=== PATIENT | female | born 1955 | race Hispanic/Latino ===

== ENCOUNTER 2018-08-25 15:10 | Inpatient (IN) | payer BC ==
[2018-08-25 15:33] VITALS: BMI 26.5
--- NOTE | 2018-08-25 15:46 | ED PDOC ---
Arrival/HPI - General Chief Complaint: Dizziness/Lightheaded Time Seen by Provider: 08/25/18 15:17 Historian: Patient, Spouse () - History of Present Illness Narrative History of Present Illness (Text): A 62 year old female, whose past medical history includes seasonal allergies, left knee arthroscopy and bilateral cataract extraction, who is accompanied by her , presents to the emergency department complaining of lightheadedness for the past 2 days. Patient reports 2 days ago, she woke up to use the bathroom late at night, and felt sudden lightheadedness, described as "feeling wobbly." States she had to hold onto wall to ambulate steadily. States upon waking up the following morning, she awoke in cold sweats, and the rest of the day she felt normal. Similar events occurred yesterday night, 24+ hours prior and this morning. Patient called her PMD to schedule an appointment, however was instead instructed by PMD to go to the ER immediately for evaluation of symptoms. Patient mentions also experiencing some nausea, and tingling sensation to the fingertips of all digits to her left hand only at 0800. Patient denies any chest pain, shortness of breath, abdominal pain, vomiting, dysuria, syncope or near- syncope, falls/traumas, or any other complaints at this time. Denies taking any medications at home. During examination, notes left hand is normally shaky. PMD: Dr. López Bookkeeping Machine Mechanic: Dr. Ortez Past Medical History - Provider Review Nursing Documentation Reviewed: Yes - Psychiatric Hx Depression: No Hx Emotional Abuse: No Hx Physical Abuse: No Hx Substance Use: No - Surgical History Hx Arthroscopy: Yes (L knee) Hx Cataract Extraction: Yes (B/L) - Anesthesia Hx Anesthesia: Yes Hx Anesthesia Reactions: No Hx Malignant Hyperthermia: No - Suicidal Assessment Feels Threatened In Home Enviroment: No Family/Social History - Physician Review Nursing Documentation Reviewed: Yes Family/Social History: No Known Family HX Smoking Status: Never Smoked Hx Alcohol Use: Yes (rarely) Hx Substance Use: No Hx Substance Use Treatment: No Allergies/Home Meds Allergies/Adverse Reactions: Allergies No Known Allergies Allergy (Verified 08/10/16 16:03) Home Medications: Home Meds Medication Instructions Recorded Confirmed No Known Home Med 05/09/17 05/09/17 Review of Systems - Physician Review All systems were reviewed & negative as marked: Yes - Review of Systems Constitutional: Night Sweats. absent: Other (no falls/traumas) Eyes: absent: Vision Changes, Photophobia ENT: absent: Hearing Changes Respiratory: absent: SOB Cardiovascular: absent: Chest Pain, Palpitations, Edema, Syncope Gastrointestinal: Nausea. absent: Abdominal Pain, Vomiting Genitourinary Female: absent: Dysuria Musculoskeletal: absent: Back Pain Skin: absent: Rash Neurological: Other (lightheadedness) Endocrine: absent: Diaphoresis, Polyuria Hemo/Lymphatic: absent: Adenopathy, Easy Bleeding Physical Exam Vital Signs Reviewed: Yes Vital Signs Temp Pulse Resp BP Pulse Ox 08/25/18 15:11 98.3 F 93 H 18 132/77 98 Temperature: Afebrile Blood Pressure: Normal Pulse: Regular Respiratory Rate: Normal Appearance: Positive for: Well-Appearing, Non-Toxic, Comfortable Pain Distress: None Mental Status: Positive for: Alert and Oriented X 3 - Systems Exam Head: Present: Atraumatic, Normocephalic Pupils: Present: PERRL Extroacular Muscles: Present: EOMI Conjunctiva: Present: Normal Ears: Present: Normal, NORMAL TM Mouth: Present: Moist Mucous Membranes Pharnyx: Present: Normal. No: ERYTHEMA, EXUDATE Nose (Internal): Present: Normal Inspection Neck: Present: Normal Range of Motion. No: Meningeal Signs, MIDLINE TENDERNESS, Paraspinal Tenderness, JVD Respiratory/Chest: Present: Clear to Auscultation, Good Air Exchange. No: Respiratory Distress, Accessory Muscle Use Cardiovascular: Present: Regular Rate and Rhythm, Normal S1, S2. No: Murmurs Abdomen: No: Tenderness, Distention, Peritoneal Signs Back: Present: Normal Inspection. No: CVA Tenderness, Midline Tenderness Upper Extremity: Present: Normal Inspection, NORMAL PULSES, Neurovascularly Intact. No: Cyanosis, Edema Lower Extremity: Present: Normal Inspection, NORMAL PULSES, Neurovascularly Intact. No: Edema Neurological: Present: GCS=15, CN II-XII Intact, Speech Normal, Motor Func Grossly Intact, Other (abnl L finger to nose. slight tremor note : pt notes worsened from previous. ) Skin: Present: Warm, Dry, Normal Color. No: Rashes Lymphatic: No: Cervical Adenopathy Psychiatric: Present: Alert, Oriented x 3, Normal Insight, Normal Concentration Medical Decision Making ED Course and Treatment: 08/25/18 15:55 Impression: 62 year old female with lightheadedness and tingling to fingertips of all digits to left hand only. L fingertip began at 0800 this am tingling likely periphreal. No trauma note Fully N/V intact. No snuffbox tenderness or signs of trauma. Negative carpal tunnel exam. Slight tremor to L hand noted, w/ abnormal finger to nose. Pt notes this has been going on for greater than 24+ hours. Neuro exam otherwise unremarkable. No indication for code stroke given time frame of slight tremor to L hadn 24+ hours prior as well as vertigo / lightheadedness. L hand fingertip tingling has been since 0800 but more likely peripheral in etiology. Orthostatics unremarkable Plan: -- EKG -- Head CT -- Chest X-Ray -- IV Fluids -- Labs -- Urinalysis -- Reassess and disposition Progress Notes: EKG: Ordered, reviewed, and independently interpreted the EKG. Rate : 96 BPM Rhythm : NSR Interpretation : No STEMI. Comparison : No previous EKG for comparison. 08/25/18 17:51 Imaging, labs largely unremarkable. Appreciate consultation w/ Dr. Melendez: to admit to his service under obs. consult order placed per Dr. Melendez to Dr. Feliz Pt in [facility]. - Scribe Statement The provider has reviewed the documentation as recorded by the Scribe Sakshi Silva Provider Scribe Attestation: All medical record entries made by the Scribe were at my direction and personally dictated by me. I have reviewed the chart and agree that the record accurately reflects my personal performance of the history, physical exam, medical decision making, and the department course for this patient. I have also personally directed, reviewed, and agree with the discharge instructions and disposition. Disposition/Present on Arrival - Present on Arrival Any Indicators Present on Arrival: No History of DVT/PE: No History of Uncontrolled Diabetes: No Urinary Catheter: No History of Decub. Ulcer: No History Surgical Site Infection Following: None - Disposition Have Diagnosis and Disposition been Completed?: Yes Diagnosis: Dizzy, Finger numbness Disposition Time: 17:51 Condition: GOOD Referrals: Js López MD [Primary Care Provider] - Follow up with primary Forms: [employer] (Iraqi)
[2018-08-25] MEDS: Sodium Chloride 0.9% 1,000 ML IV SCH (16:12)
[2018-08-25 16:19] LABS: BASO # 0.02 K/mm3 (0.0-2.0); BASO % 0.2 % (0.0-3.0); EOS # 0.1 (0.0-0.7); EOS % 0.7 % (1.5-5.0); HEMOGLOBIN 12.9 g/dL (12.0-16.0); LYMPH # 2.4 (1.2-3.4); LYMPH % 24.4 % (22.0-35.0); MEAN CELL VOLUME 90.8 fl (80.0-105.0); MEAN CORPUSCULAR HEMOGLOBIN 29.7 pg (25.0-35.0); MEAN CORPUSCULAR HGB CONC 32.7 g/dl (31.0-37.0); MONO # 0.8 (0.1-0.6); MONO % 8.2 % (1.0-6.0); RBC 4.35 10^6/uL (3.5-6.1); RED CELL DISTRIBUTION WIDTH 13.6 % (11.5-14.5); WHITE BLOOD COUNT 9.8 10^3/uL (4.5-11.0)
[2018-08-25 16:30] LABS: ALB/GLOB RATIO 1.2 (1.1-1.8); ALBUMIN 4.3 g/dL (3.0-4.8); ALT/SGPT 10 U/L (7-56); AST/SGOT 24 U/L (14-36); BLOOD UREA NITROGEN 13 mg/dL (7-21); CALCIUM 9.5 mg/dL (8.4-10.5); GFR NON-AFRICAN AMERICAN > 60
[2018-08-25 16:47] LABS: TROPONIN I < 0.01 ng/mL
--- NOTE | 2018-08-25 17:27 | CT ---
Date of service: 08/25/2018 PROCEDURE: CT HEAD WITHOUT CONTRAST. HISTORY: lightheaded / dizzy COMPARISON: None available. TECHNIQUE: Axial computed tomography images were obtained through the head/brain without intravenous contrast. Radiation dose: Total exam DLP = 826.96 mGy-cm. This CT exam was performed using one or more of the following dose reduction techniques: Automated exposure control, adjustment of the mA and/or kV according to patient size, and/or use of iterative reconstruction technique. FINDINGS: HEMORRHAGE: No intracranial hemorrhage. BRAIN: No mass effect or edema. No atrophy or chronic microvascular ischemic changes. VENTRICLES: Unremarkable. No hydrocephalus. CALVARIUM: Unremarkable. PARANASAL SINUSES: Unremarkable as visualized. No significant inflammatory changes. MASTOID AIR CELLS: Unremarkable as visualized. No inflammatory changes. OTHER FINDINGS: None. IMPRESSION: No acute findings
--- NOTE | 2018-08-25 17:27 | RAD ---
Date of service: 08/25/2018 HISTORY: lightheaded COMPARISON: No prior. TECHNIQUE: Chest PA and lateral FINDINGS: LUNGS: No active pulmonary disease. PLEURA: No significant pleural effusion identified. No pneumothorax apparent. CARDIOVASCULAR: No aortic atherosclerotic calcification present. Normal cardiac size. No pulmonary vascular congestion. OSSEOUS STRUCTURES: No significant abnormalities. VISUALIZED UPPER ABDOMEN: Normal. OTHER FINDINGS: None. IMPRESSION: No active disease.
--- NOTE | 2018-08-25 23:16 | HP ---
DATE OF EXAM: 08/25/2018 HISTORY OF PRESENT ILLNESS: The patient is seen in the emergency room. She is a 62-year-old female. She presented with symptoms today of tingling in the left hand. The patient also has past history of dizziness and ataxia-like symptoms for the last two days of short duration. The patient has not had dizziness in the past according to history. The patient has not seen me in the office for more than a year. She does not have any chronic accepting that she has had treatment for osteoarthritis and left knee pain. The patient had arthroscopy by orthopedic surgeon. The patient has had no past history of any cardio, neuro symptoms such as syncope or chest pain evaluation for cardiac disease. ALLERGIES: THE PATIENT IS NOT ALLERGIC TO ANY MEDICATIONS OR SUBSTANCE. SOCIAL HISTORY: The patient is . Her is with her at the time that she was seen in the emergency room today. PHYSICAL EXAMINATION: GENERAL: The patient is lying in the stretcher in the emergency room. She is fairly comfortable. HEENT: Head is normocephalic. NECK: Thyroid is not enlarged. Carotid pulses are present. JVP is flat. LUNGS: Trachea is central. Breath sounds are vesicular. No adventitious sounds are heard. HEART: Normal sinus rhythm. S1 and S2 present. ABDOMEN: Soft. Liver and spleen not palpable. No tenderness. No mass is seen. CENTRAL NERVOUS SYSTEM: The patient is conscious, rational, and oriented. The patient's eye examination; there is no sign of nystagmus noted. The patient's gait, she does not have any Romberg sign. Cranial nerves are intact I to VIII. The patient's motor and sensory functions are within normal limits. Reflexes are within normal limits. LABORATORY DATA: The patient's blood work done in the emergency room; CBC is within normal range. The patient's chemistry is within normal range. within normal range. The patient's chest x-ray is clear. CT scan of the head does not reveal any pathology at this time. IMPRESSION AND PLAN: In view of the patient's symptoms, the patient has been requested to have a neurological evaluation and she might need an MRI of the brain. We will do carotid Doppler to check the carotid arteries. The patient is on prophylactic dose of aspirin 81 mg daily, put on heart healthy diet, and we will follow up. Clinical status now is not clear, but the patient is going to be in the hospital for evaluation. Law López MD
[2018-08-26] MEDS: Sodium Chloride 0.9% 1,000 ML IV SCH ×3 (02:39→21:49)
--- NOTE | 2018-08-26 08:26 | CP.PCM.PN ---
Subjective - Date & Time of Evaluation Date of Evaluation: 08/26/18 Time of Evaluation: 08:00 - Subjective Subjective: Patient is seen this morning. She complains of tingling of the fingers of the left hand. She denies dizziness this morning. Objective - Vital Signs/Intake and Output Vital Signs (last 24 hours): Temp Pulse Resp BP Pulse Ox 98.2 F 82 18 144/70 96 08/26/18 08:06 08/26/18 08:06 08/26/18 08:06 08/26/18 08:06 08/26/18 08:06 Intake and Output: 08/26/18 08/26/18 06:59 18:59 Intake Total 660 Balance 660 - Medications Medications: Current Medications Aspirin (Ecotrin) 81 mg PO DAILY [facility] Sodium Chloride (Sodium Chloride 0.9%) 1,000 mls @ 100 mls/hr IV .Q10H [facility] Last Admin: 08/26/18 02:39 Dose: 100 mls/hr - Labs Labs: 08/25/18 14:08 08/25/18 14:08 - Constitutional Appears: No Acute Distress - Head Exam Head Exam: ATRAUMATIC, NORMOCEPHALIC - Respiratory Exam Respiratory Exam: Clear to Ausculation Bilateral, NORMAL BREATHING PATTERN - Cardiovascular Exam Cardiovascular Exam: REGULAR RHYTHM, +S1, +S2 - GI/Abdominal Exam GI & Abdominal Exam: Soft, Tenderness, Normal Bowel Sounds - Extremities Exam Extremities Exam: Normal Inspection - Neurological Exam Neurological Exam: Alert, Awake, Oriented x3 Assessment and Plan - Assessment and Plan (Free Text) Assessment: Tingling left hand/dizziness - Patient is awaiting neurological evaluation - continue ASA 81 mg daily - CT Head shows no acute abnormalities - will order Carotid Doppler and X-ray Cervical spine
--- NOTE | 2018-08-26 12:44 | RAD ---
Date of service: 08/26/2018 PROCEDURE: Cervical Spine Radiographs. HISTORY: Pain. COMPARISON: None available. FINDINGS: BONES: Alignment maintained. No fracture. Dens Intact. DISC SPACES: Normal. SOFT TISSUES: Normal. No prevertebral soft tissue swelling. OTHER FINDINGS: None. IMPRESSION: Normal cervical spine radiographs
--- NOTE | 2018-08-26 18:39 | US ---
PROCEDURE: Bilateral carotid artery duplex ultrasound HISTORY: Carotid stenosis TIA PHYSICIAN(S): Vinicio Licona MD. TECHNIQUE: Duplex sonography and color-flow Doppler were used to evaluate the carotid bifurcations and limited segments of the vertebral arteries bilaterally. FINDINGS: There is mild to moderate smooth heterogeneous plaque noted at the carotid bifurcations bilaterally. The peak systolic velocity in the proximal right internal carotid artery is 93 cm/sec. This corresponds to a 20 to 39% proximal right ICA stenosis. Normal systolic velocities are noted in the proximal right external carotid artery. There is antegrade flow in the right vertebral artery. The peak systolic velocity in the proximal left internal carotid artery is 123 cm/sec. This corresponds to a 40-59 percent proximal left ICA stenosis. Normal systolic velocities are noted in the proximal left external carotid artery. The left vertebral artery is large and appears to be occluded. IMPRESSION: 1. 40-59 percent proximal left ICA stenosis. 2. 20-39 percent proximal right ICA stenosis. 3. 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 The right vertebral artery is patent. This can be confirmed with MRA with gadolinium evaluation of the aortic arch and cervical vessels. A conventional arteriogram can also be considered
--- NOTE | 2018-08-26 19:46 | CARD ---
APPROVED REPORT Date of service: 08/25/2018 EKG Measurement Heart [id number] <Conclusion> Normal sinus rhythm Cannot rule out Inferior infarct, age undetermined Abnormal ECG
--- NOTE | 2018-08-26 20:22 | CON ---
DATE: 08/26/2018 HISTORY OF PRESENT ILLNESS: This is a 62-year-old female with past medical history of cataract, who came to the emergency room with a complaint of lightheadedness for the past 2 days. She woke up to use the bathroom late in the night and felt sudden lightheadedness and feeling wobbly and hold on to the perez and in the morning again she woke up in cold sweat, came to the hospital for evaluation. PAST MEDICAL HISTORY: As above. ALLERGIES: NO KNOWN DRUG ALLERGIES. PHYSICAL EXAMINATION: HEENT: Normocephalic and atraumatic. NECK: Supple. NEUROLOGIC: Alert, awake, and oriented x3. No aphasia. Cranial nerves II through XII are tested. Pupils reactive. EOM intact. Visual field full. No facial asymmetry. Tongue midline. Motor examination; moves all the extremities equally. Tone normal. Deep tendon reflexes 1+. Both plantars are downgoing. Sensory appears intact. Cerebellar gait deferred. IMPRESSION: Syncope, less likely with lightheadedness. CAT scan of the head was done which was reported negative. Symptoms have improved. PLAN: Continue present management. We will follow up. Maciel Feliz MD
--- NOTE | 2018-08-27 08:35 | CP.PCM.PN ---
Subjective - Date & Time of Evaluation Date of Evaluation: 08/27/18 Time of Evaluation: 07:45 - Subjective Subjective: Patient is seen this morning in room 365 bed 2. She continues to complain of tingling in the fingers of the left hand. Objective - Vital Signs/Intake and Output Vital Signs (last 24 hours): Temp Pulse Resp BP Pulse Ox 98.3 F 84 20 134/82 97 08/27/18 08:19 08/27/18 08:19 08/27/18 08:19 08/27/18 08:19 08/27/18 08:19 Intake and Output: 08/27/18 08/27/18 06:59 18:59 Intake Total 2240 Balance 2240 - Medications Medications: Current Medications Aspirin (Ecotrin) 81 mg PO DAILY [facility] Last Admin: 08/26/18 10:32 Dose: 81 mg Sodium Chloride (Sodium Chloride 0.9%) 1,000 mls @ 100 mls/hr IV .Q10H [facility] Last Admin: 08/26/18 21:49 Dose: Not Given - Labs Labs: 08/25/18 14:08 08/25/18 14:08 - Constitutional Appears: No Acute Distress - Head Exam Head Exam: ATRAUMATIC, NORMOCEPHALIC - Respiratory Exam Respiratory Exam: Clear to Ausculation Bilateral, NORMAL BREATHING PATTERN - Cardiovascular Exam Cardiovascular Exam: REGULAR RHYTHM, +S1, +S2 - GI/Abdominal Exam GI & Abdominal Exam: Soft, Normal Bowel Sounds. absent: Tenderness - Extremities Exam Extremities Exam: Normal Inspection - Neurological Exam Neurological Exam: Alert, Awake, Oriented x3 Assessment and Plan - Assessment and Plan (Free Text) Assessment: Occlusion of large left vertebral artery Tingling of fingers of left hand Plan: Patient continues to complain of tingling of the fingers of her left hand. Carotid doppler showed 40-59% left ICA stenosis, 20-39% proximal right ICA stenosis and occlusion of the large left vertebral artery. Patient is to have MRI/MRA head and neck today with and without contrast to further evaluate the occlusion. Will consult Dr. Fernanda Licona regarding the occlusion.
[2018-08-27] MEDS ORDERED: Gadodiamide 287 MG/ML VIAL (20ML) IV ONE (09:14)
--- NOTE | 2018-08-27 12:01 | MRI ---
Date of service: 08/27/2018 PROCEDURE: MRI BRAIN WITH AND WITHOUT CONTRAST HISTORY: vertigo COMPARISON: None available. TECHNIQUE: Multiplanar, multisequence MR images of the brain were obtained with and without intravenous contrast enhancement. 15 cc of Omniscan FINDINGS: HEMORRHAGE: None DWI: Small acute scattered infarcts are seen in the left posterior medulla, the left inferior cerebellar hemisphere and the right superior cerebellar hemisphere. These are in the distribution of branches of the basilar and vertebral arteries. BRAIN PARENCHYMA: No mass,mass effect or edema. Severe chronic microvascular changes are seen in the periventricular white matter and deep white matter of both cerebral hemispheres ENHANCEMENT: No abnormal intracranial enhancement. VENTRICLES: Unremarkable. No hydrocephalus. CRANIUM: Unremarkable. ORBITS: Grossly unremarkable. PARANASAL SINUSES/MASTOIDS: Clear VASCULAR SYSTEM: Skull base flow voids intact. OTHER FINDINGS: None . IMPRESSION: Small acute scattered infarcts are seen in the left posterior medulla, the left inferior cerebellar hemisphere and the right superior cerebellar hemisphere. These are in the distribution of branches of the basilar and vertebral arteries.
--- NOTE | 2018-08-27 12:04 | MRI ---
Date of service: 08/27/2018 PROCEDURE: Magnetic Resonance Angiography Brain HISTORY: vertigo, tingling COMPARISON: None available. TECHNIQUE: 3D time of flight MR angiography of the intracranial arteries was performed. Rotating maximum intensity projection images were generated. FINDINGS: INTERNAL CAROTID ARTERIES: Unremarkable. The skull base, petrous, cavernous and supraclinoid segments are bilaterally widely patient. ANTERIOR CEREBRAL ARTERIES: Unremarkable. A1 and A2 segments are widely patent. Smaller distal branches unremarkable, as visualized. MIDDLE CEREBRAL ARTERIES: Unremarkable. M1 and M2 segments are widely patent. Perisylvian branches grossly symmetric. POSTERIOR CIRCULATION: Basilar Artery: Unremarkable. Distal Vertebral Arteries: The right vertebral is dominant. The left vertebral is small in caliber Posterior Cerebral Arteries: Unremarkable. Posterior Inferior Cerebellar Arteries: Unremarkable. ANEURYSM/ VASCULAR MALFORMATIONS: None. OTHER FINDINGS: None. IMPRESSION: Unremarkable MR angiography of the brain.
--- NOTE | 2018-08-27 12:08 | MRI ---
Date of service: 08/27/2018 PROCEDURE: MR Angiography of the neck with and without contrast HISTORY: tingling, vertigo COMPARISON: None available. TECHNIQUE: Contrast enhanced and [id number] angiography of the neck was performed. Rotating 3D maximum intensity projection images of the cervical carotid and vertebral arteries were generated. 15 cc of Omniscan FINDINGS: RIGHT CAROTID ARTERIES: Common Carotid Artery: Normal. Carotid Bifurcation: Normal. Internal Carotid Artery:Normal. External Carotid Artery (proximal branches): Normal. LEFT CAROTID ARTERIES: Common Carotid Artery: Normal. Carotid Bifurcation: Normal. Internal Carotid Artery:There is loss of the normal bulbar appearance of the proximal internal carotid but there is no measurable stenosis. External Carotid Artery (proximal branches): Normal. VERTEBRAL ARTERIES: Right Vertebral Artery: Normal. Left Vertebral Artery: The left vertebral is diffusely narrow compared to the right. There is also a focal stenosis in the left vertebral 10 mm from the confluence with the basilar artery. This can be seen on image 9 series 1601 OTHER FINDINGS: None. IMPRESSION: The left vertebral is diffusely narrow compared to the right. There is also a focal stenosis in the left vertebral 10 mm from the confluence with the basilar artery.
--- NOTE | 2018-08-27 16:10 | PN ---
DATE: 08/27/2018 CHIEF COMPLAINT: Followup for vertigo and paresthesias on the left hand. SUBJECTIVE: The patient is seen and examined at bedside, mentioned that her dizziness is slightly better, but has some finger to nose past pointing on the left or finger to nose. MRI of the brain showed a small acute scattered infarct seen in the left posterior medulla, left inferior cerebellar hemisphere, and right superior cerebellar hemisphere. These are seen in the distributions of the basilar and vertebral arteries. The neck MRA showed a left vertebral artery stenosis, focal stenosis, from the confluence from the basilar artery. The patient denies any headache at this time. PAST MEDICAL HISTORY: Osteoarthritis and hypertension. REVIEW OF SYSTEMS: A 14-point review of systems negative except in the HPI. FAMILY HISTORY: Noncontributory. MEDICATIONS: Reviewed by nurses' reconciliation sheet. SOCIAL HISTORY: No illicit drug abuse, smoking, or any drug abuse at this time. LABORATORY DATA: No new labs done today. PHYSICAL EXAMINATION: GENERAL: The patient is seen up in bed, in no acute distress.. VITAL SIGNS: Temperature 98.3, pulse 84, blood pressure 134/82, respiratory rate 20, and oxygen saturation 97% on room air. HEENT: Head is atraumatic and normocephalic. PERRLA. Extraocular muscles intact. NECK: Supple. No JVD. No adenopathy noted. LUNGS: Clear to auscultation. No adventitious sounds. HEART: S1 and S2, normal rate and rhythm. No murmur, rubs, or gallops. ABDOMEN: Soft, nontender, and nondistended. Bowel sounds present. EXTREMITIES: No clubbing. No cyanosis. Peripheral pulses are 2+ bilaterally. NEUROLOGIC: The patient is alert and oriented to person, place, month, and year. Speech is fluent without any errors. Cranial nerves II through XII are intact. Motor exam; moves all extremities equally. No pronator drift seen. Sensory exam; light touch, pinprick, proprioception, and vibration are intact. DTRs are 2+ throughout. Coordination; [id number] is intact. [id number] in the left. Gait is deferred for now. IMPRESSION: Dizziness with transient left-sided paresthesias secondary to an acute small scattered infarct seen in the left posterior medulla and left inferior cerebellar, and right superior cerebellar hemispheres, which is most likely secondary to underlying left vertebral artery focal stenosis and diffuse atherosclerotic disease. There is also a subjection since she has bilateral infarcts could be an embolic nature. RECOMMENDATIONS: I would recommend; 1. Aspirin 81 mg and possibly Eliquis. If okay by Cardiology for stroke prevention 2.5 p.o. twice a day. 2. Echocardiogram and possible loop recorder in the future . 3. PT/OT assessment. 4. Lipitor 40 mg p.o. daily. 5. Continue current and present medical management/followup. Yobani Feliz MD
[2018-08-28 06:27] LABS: INR 1.12; PARTIAL THROMBOPLASTIN TIME 27.3 Seconds (26.9-38.3); PROTHROMBIN TIME 12.6 SECONDS (9.4-12.5)
[2018-08-28 06:53] LABS: HDL CHOLESTEROL 44 mg/dL (29-60)
[2018-08-28 07:04] LABS: LDL CHOLESTEROL 140 mg/dL (0-129)
--- NOTE | 2018-08-28 08:57 | CP.PCM.PN ---
Subjective - Date & Time of Evaluation Date of Evaluation: 08/28/18 Time of Evaluation: 08:15 - Subjective Subjective: Patient is seen this morning. She is nervous about her condition. She denies dizziness. Objective - Vital Signs/Intake and Output Vital Signs (last 24 hours): Temp Pulse Resp BP Pulse Ox 98.5 F 91 H 18 158/79 H 94 L 08/28/18 06:00 08/28/18 06:00 08/28/18 06:00 08/28/18 06:00 08/28/18 06:00 Intake and Output: 08/28/18 08/28/18 06:59 18:59 Intake Total 1200 Balance 1200 - Medications Medications: Current Medications Aspirin (Ecotrin) 81 mg PO DAILY [facility] Last Admin: 08/27/18 10:30 Dose: 81 mg Sodium Chloride (Sodium Chloride 0.9%) 1,000 mls @ 100 mls/hr IV .Q10H [facility] Last Admin: 08/26/18 21:49 Dose: Not Given - Labs Labs: 08/25/18 14:08 08/25/18 14:08 PT 12.6 SECONDS (9.4-12.5) H 08/28/18 05:30 INR 1.12 08/28/18 05:30 APTT 27.3 Seconds (26.9-38.3) 08/28/18 05:30 - Constitutional Appears: No Acute Distress - Head Exam Head Exam: ATRAUMATIC, NORMOCEPHALIC - Respiratory Exam Respiratory Exam: Clear to Ausculation Bilateral, NORMAL BREATHING PATTERN - Cardiovascular Exam Cardiovascular Exam: REGULAR RHYTHM, +S1, +S2 - GI/Abdominal Exam GI & Abdominal Exam: Soft, Normal Bowel Sounds. 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 continue ASA, and will start statin. Patient also started on Norvasc 5 mg daily as blood pressure is elevated this morning. She is to have cardiac evaluation regarding need for anticoagulation vs. antiplatelet therapy.
--- NOTE | 2018-08-28 17:33 | CON ---
DATE: 08/28/2018 TIME: 11:30 a.m. CHIEF COMPLAINT/HISTORY OF PRESENT ILLNESS: The patient is a 62-year-old female with a relatively benign past medical history, who presented with dizziness, vertigo, and left finger numbness. Her MRI demonstrated multiple small posterior fossa infarcts. PAST MEDICAL HISTORY: Her past medical history is significant for hypertension. Her symptoms have resolved in the hospital. MRA of the arch and cervical vessels along with carotid ultrasound demonstrates mild carotid disease. The left vertebral artery is atretic. The right vertebral artery is dominant. There is a suggestion on the MRA that there could be a severe stenosis at the origin of the dominant right vertebral artery. Currently, the patient is on aspirin. Plavix will be added. I have discussed the situation with Dr. Melendez and Dr. Feliz. We will schedule the patient for a carotid/vertebral arteriogram. If there is a high-grade stenosis at the origin of the dominant right vertebral artery, a stent may be placed. I discussed the possibilities at length with the patient and she understands the risks, benefits, and alternatives. Vinicio Licona MD [facility]
--- NOTE | 2018-08-28 20:43 | CON ---
DATE: 08/28/2018 LOCATION: The patient in room 368 and bed 1. REASON FOR CONSULTATION: Small acute scattered infarcts seen in the posterior midline, cerebral hemisphere and right cerebral hemisphere. Opinion for anticoagulation, history of hypertension. HISTORY OF PRESENT ILLNESS: The patient is a 62-year-old female admitted with a history that she got up at night to go to bathroom when suddenly she felt very dizzy and she has to hold down to the wall to go to bathroom, then she came back and went to bed again and in the morning she felt the diaphoresis and then she felt numbness in the left hand finger. This episode was not associated with any chest pain, shortness of breath, or palpitation. The patient denies any history of cardiac problem like chest pain on exertion or shortness of breath. No history of MO. PAST MEDICAL HISTORY: The patient had orthoscopic knee surgery on the knee and she has cataract on the both eyes for which she had surgery. She says on this admission, she found to have high blood pressure, but she has no prior history of blood pressure. PERSONAL HISTORY: Denies smoking. Drinks socially. ALLERGIES: THE PATIENT DENIES ANY ALLERGIES. MEDICATIONS AT HOME: The patient denied taking any medications at home prior to admission. REVIEW OF SYSTEMS: All the systems were reviewed, positive as mentioned in the history, otherwise negative. FAMILY HISTORY: Not significant. PHYSICAL EXAMINATION: VITAL SIGNS: Blood pressure 158/79, respirations 18, pulse of 91, and temperature 98.5. HEENT: Head is normocephalic. Eyes; pupils normal. Conjunctivae; normal. Nose and throat; normal. NECK: JVP low. Carotids equal. THORAX: AP diameter normal. LUNGS: Clear. CARDIOVASCULAR: S1 and S2. ABDOMEN: Soft and nontender. No organomegaly. EXTREMITIES: No clubbing. No cyanosis. LABORATORY DATA: WBC 9.8, hemoglobin 12.9, hematocrit 39.5, and platelets 499. Sodium 139, potassium 3.9, BUN 13, and creatinine 0.8, sugar 106. Calcium, magnesium, AST, and ALT are normal. Cholesterol 211, LDL 140, and triglycerides 99. TSH 1.31. EKG shows sinus rhythm Q in III, very small Q in aVF. Chest x-ray, no active disease. CAT of the head was negative. MRI of the brain showed small acute scattered infarcts seen in the left posterior medulla, left inferior cerebellar hemisphere and right superior cerebellar hemisphere. These are the distribution of branches of the basilar and vertebral arteries. Carotid artery ultrasound showed of the large right vertebral artery, but it is patent. Neck MRI showed left vertebral is diffusely narrowed compared to the right. There is also focal stenosis in the left vertebral 10 mm from confluence with the basilar artery. DIAGNOSES: Dizziness with left sided small scattered infarcts seen in the left posterior medulla and left inferior cerebellar hemisphere and right cerebellar hemisphere, which are in territory of the left vertebra and basilar artery, hypertension, hypercholesterolemia. PLAN: We will do an echocardiogram with bubble study. The patient is scheduled for angiography by Dr. Vinicio Licona tomorrow. The patient is on aspirin 81 mg daily, atorvastatin 40 mg daily, amlodipine 5 mg daily has been started today for blood pressure, Plavix 300 mg stat has been given as a loading dose, the patient will be on Plavix 75 mg daily. We will monitor her blood pressure, post angiogram. The patient will be evaluated again. Also, we will follow with the echo report and the patient will discuss with if the patient need Eliquis 2.5 mg b.i.d, it will be okay from cardiac point of view and we will monitor blood pressure and follow with you closely. Scar Ortez MD
--- NOTE | 2018-08-29 08:18 | CP.PCM.PN ---
Subjective - Date & Time of Evaluation Date of Evaluation: 08/29/18 Time of Evaluation: 07:45 - Subjective Subjective: Patient is seen this morning in room 268 bed 1. She denies dizziness and tingling of the fingers. She is scheduled for angiogram today. Objective - Vital Signs/Intake and Output Vital Signs (last 24 hours): Temp Pulse Resp BP Pulse Ox 98.1 F 81 20 149/74 97 08/29/18 08:08 08/29/18 08:08 08/29/18 08:08 08/29/18 08:08 08/29/18 08:08 Intake and Output: 08/29/18 08/29/18 06:59 18:59 Intake Total 1260 Balance 1260 - Medications Medications: Current Medications Amlodipine Besylate (Norvasc) 5 mg PO DAILY [facility] Last Admin: 08/28/18 09:09 Dose: 5 mg Aspirin (Ecotrin) 81 mg PO DAILY [facility] Last Admin: 08/28/18 09:09 Dose: 81 mg Atorvastatin Calcium (Lipitor) 40 mg PO DIN [facility] Last Admin: 08/28/18 18:30 Dose: 40 mg Clopidogrel Bisulfate (Plavix) 75 mg PO DAILY [facility] Sodium Chloride (Sodium Chloride 0.9%) 1,000 mls @ 100 mls/hr IV .Q10H [facility] Last Admin: 08/26/18 21:49 Dose: Not Given - Labs Labs: 08/25/18 14:08 08/25/18 14:08 PT 12.6 SECONDS (9.4-12.5) H 08/28/18 05:30 INR 1.12 08/28/18 05:30 APTT 27.3 Seconds (26.9-38.3) 08/28/18 05:30 - Constitutional Appears: No Acute Distress - Head Exam Head Exam: ATRAUMATIC, NORMOCEPHALIC - Respiratory Exam Respiratory Exam: Clear to Ausculation Bilateral, NORMAL BREATHING PATTERN - Cardiovascular Exam Cardiovascular Exam: REGULAR RHYTHM, +S1, +S2 - GI/Abdominal Exam GI & Abdominal Exam: Soft, Normal Bowel Sounds. absent: Tenderness - Extremities Exam Extremities Exam: Normal Inspection - Neurological Exam Neurological Exam: Alert, Awake, CN II-XII Intact, Oriented x3 Assessment and Plan - Assessment and Plan (Free Text) Assessment: Multiple infarcts seen on MRI Occlusion left vertebral artery Questionable stenosis at origin of right vertebral artery HTN Plan: Carotid Doppler shows occlusion of large left vertebral artery. MRI Brain shows small acute scattered infarcts in the left posterior medulla, the left inferior cerebellar hemisphere, and the right superior cerebellar hem isphere. Patient has been started on ASA, and Plavix. She is scheduled for carotid/vertebral angiogram today. If stenosis is found, stent may be placed. continue Norvasc for hypertension. continue Lipitor. Case discussed with Dr. Feliz and Dr. Fernanda Licona.
[2018-08-29] MEDS: Sodium Chloride 0.9% 1,000 ML IV SCH ×2 (09:23→23:15)
--- NOTE | 2018-08-29 11:18 | CP.PCM.PN ---
Subjective - Date & Time of Evaluation Date of Evaluation: 08/29/18 Time of Evaluation: 06:50 - Subjective Subjective: Awake, alert, denies tingling of arms Reason for consultation and follow up: Cardiac evaluation, tingling and numbness of left arm, MRI of brain showed multiple small posterior fossa infarcts, started on Aspirin and Plavix. Seen and examined by me and Dr. Castano Objective - Vital Signs/Intake and Output Vital Signs (last 24 hours): Temp Pulse Resp BP Pulse Ox 98.1 F 81 20 149/74 97 08/29/18 08:08 08/29/18 09:22 08/29/18 08:08 08/29/18 09:22 08/29/18 08:08 Intake and Output: 08/29/18 08/29/18 06:59 18:59 Intake Total 1260 Balance 1260 - Medications Medications: Current Medications Amlodipine Besylate (Norvasc) 5 mg PO DAILY [facility] Last Admin: 08/29/18 09:22 Dose: 5 mg Aspirin (Ecotrin) 81 mg PO DAILY [facility] Last Admin: 08/29/18 09:22 Dose: 81 mg Atorvastatin Calcium (Lipitor) 40 mg PO DIN [facility] Last Admin: 08/28/18 18:30 Dose: 40 mg Clopidogrel Bisulfate (Plavix) 75 mg PO DAILY [facility] Last Admin: 08/29/18 09:22 Dose: 75 mg Sodium Chloride (Sodium Chloride 0.9%) 1,000 mls @ 100 mls/hr IV .Q10H [facility] Last Admin: 08/29/18 09:23 Dose: 100 mls/hr - Labs Labs: 08/25/18 14:08 08/25/18 14:08 PT 12.6 SECONDS (9.4-12.5) H 08/28/18 05:30 INR 1.12 08/28/18 05:30 APTT 27.3 Seconds (26.9-38.3) 08/28/18 05:30 - Constitutional Appears: Non-toxic, No Acute Distress - Head Exam Head Exam: NORMAL INSPECTION, NORMOCEPHALIC - Eye Exam Eye Exam: Normal appearance Pupil Exam: NORMAL ACCOMODATION - ENT Exam ENT Exam: Mucous Membranes Moist, Normal Exam - Respiratory Exam Respiratory Exam: Clear to Ausculation Bilateral, NORMAL BREATHING PATTERN - Cardiovascular Exam Cardiovascular Exam: +S1, +S2 - GI/Abdominal Exam GI & Abdominal Exam: Soft, Normal Bowel Sounds - Extremities Exam Extremities Exam: Full ROM - Neurological Exam Neurological Exam: Alert, Awake, Oriented x3 - Psychiatric Exam Psychiatric exam: Normal Affect, Normal Mood - Skin Skin Exam: Dry, Normal Color, Warm Assessment and Plan - Assessment and Plan (Free Text) Assessment: A 62 year old female who came in to the ER due to tingling and numbness of left arm, MRI of brain showed multiple small posterior fossa infarcts, started on Aspirin and Plavix. Neuro on consult. History of knee surgery, cataract surgery on both eyes,hypercholesterolemia, hypertension. Denies chest pain. Denies shortness of breath. Troponin normal. Echo to evaluate LV function. Start Eliquis 2.5 mg BID once all invasive procedures completed. Cardiac status stable. Plan: Denies any distress On Plavix and Aspirin Will start Eliquis 2.5 mg BID once invasive procedure done For carotid and vertebral arteriogram today by Dr. Licona Continue current treatment Continue current medications On Norvasc 5 mg daily, ASA 81 mg daily, Lipitor 40 mg daily Plavix 75 mg daily Continue IV for hydration Echo to evaluate LV function Will follow up Plan and treatment discussed with Dr. Castano
[2018-08-29] MEDS ORDERED: Phenylephrine 10 mg/ml Inj ONE (14:53)
[2018-08-29] MEDS ORDERED: Lidocaine 2% Inj (20ml) ONE (14:53)
[2018-08-29] MEDS ORDERED: Iodixanol 320 MG/ML 100 ML BOTTLE IV ONE (14:54)
[2018-08-29] MEDS ORDERED: DOPamine 400mg/250ml D5W 400 MG/250 ML BAG IV ONE (14:54)
[2018-08-29] MEDS ORDERED: Nitroglycerin 50mg in D5W 50 MG/250 ML BOTTLE IV ONE (14:54)
[2018-08-29] MEDS ORDERED: Iodixanol 320 MG/ML 200 ML BOTTLE IV ONE (14:54)
--- NOTE | 2018-08-29 15:50 | CARD ---
APPROVED REPORT Date of service: 08/28/2018 EXAM: Two-dimensional and M-mode echocardiogram with Doppler and color Doppler. INDICATION CEREBRAL INFARCT/BUBBLE STUDY 2D DIMENSIONS Left Atrium (2D)3.7 (1.6-4.0cm)IVSd0.9 (0.7-1.1cm) LVDd4.3 (3.9-5.9cm)PWd0.9 (0.7-1.1cm) LVDs2.8 (2.5-4.0cm)FS (%) 34.2 % LVEF (%)63.5 (>50%) M-Mode DIMENSIONS Aortic Root3.20 (2.2-3.7cm)Aortic Cusp Exc.1.80 (1.5-2.0cm) Aortic Valve AoV Peak Spzupyoa681.0cm/Madi Peak GR.6mmHg Mitral Valve MV E Ruapiojl49.1cm/sMV A Juiydwgy52.4cm/sE/A ratio0.8 TDI Lateral E' Peak V5.35cm/sMedial E' Peak V5.79cm/sE/Lateral E'12.9 E/Medial E'11.9 Pulmonary Valve PV Peak Gsdxifgw95.1cm/sPV Peak Grad.2mmHg Tricuspid Valve TR Peak Dphmwoup951qs/sRAP [id number] Peak Gr.21mmHg [id number] LEFT VENTRICLE The left ventricle is normal size. There is normal left ventricular wall thickness. The left ventricular function is normal.EF-60-65% There is normal LV segmental wall motion. Transmitral Doppler flow pattern is Grade III-reversible restrictive diastolic dysfunction. No left ventricle thrombus noted on this study. There is no ventricular septal defect visualized. There is no left ventricular aneurysm. There is no mass noted in the left ventricle. RIGHT VENTRICLE The right ventricle is normal size. There is normal right ventricular wall thickness. The right ventricular systolic function is normal. ATRIA The left atrium size is normal. The right atrium size is normal. The interatrial septum is intact with no evidence for an atrial septal defect, By Bubble study and color flow. AORTIC VALVE The aortic valve is thickened but opens well. No aortic regurgitation is present. There is no aortic valvular stenosis. There is no aortic valvular vegetation. MITRAL VALVE The mitral valve is thickened but opens well. Mitral regurgitation is trace. There is no mitral valve stenosis. There is no evidence of mitral valve prolapse. TRICUSPID VALVE The tricuspid valve leaflets are thickened , but open well. There is trace tricuspid regurgitation.RVSP-31 mmof hg. There is no tricuspid valve stenosis. There is no tricuspid valve prolapse or vegetation. PULMONIC VALVE The pulmonary valve is normal in structure. Trivial PI. There is no pulmonic valvular stenosis. GREAT VESSELS The aortic root is normal in size. The ascending aorta is normal in size. The pulmonary artery is normal. The IVC is normal in size and collapses >50% with inspiration. PERICARDIAL EFFUSION There is no pleural effusion. There is no pericardial effusion. <Conclusion> Normal chamber Size. EF-60-65% Trace MR/TR RVS-30 mmof Hg. The IVC is normal in size and collapses >50% with inspiration. There is no pericardial effusion. The interatrial septum is intact with no evidence for an atrial septal defect, By Bubble study and color flow.
[2018-08-29] MEDS ORDERED: Midazolam 2 MG/2 ML VIAL ONE ×2 (16:08→16:23)
[2018-08-30] MEDS: Sodium Chloride 0.9% 1,000 ML IV SCH (05:55)
[2018-08-30 07:15] LABS: BASO # 0.03 K/mm3 (0.0-2.0); BASO % 0.3 % (0.0-3.0); EOS # 0.4 (0.0-0.7); EOS % 4.5 % (1.5-5.0); HEMOGLOBIN 11.9 g/dL (12.0-16.0); LYMPH # 2.5 (1.2-3.4); MEAN CORPUSCULAR HEMOGLOBIN 29.1 pg (25.0-35.0); MEAN PLATELET VOLUME 9.2 fl (7.0-11.0); MONO # 0.8 (0.1-0.6); MONO % 9.1 % (1.0-6.0); RBC 4.09 10^6/uL (3.5-6.1); RED CELL DISTRIBUTION WIDTH 13.6 % (11.5-14.5); WHITE BLOOD COUNT 8.9 10^3/uL (4.5-11.0)
[2018-08-30 07:52] LABS: BLOOD UREA NITROGEN 9 mg/dL (7-21); GFR NON-AFRICAN AMERICAN > 60
[2018-08-30 08:22] VITALS: PULSE 75; RESP 20; TEMP 98; O2SAT 96
[2018-08-30 09:17] VITALS: BP 120/69
--- NOTE | 2018-08-30 10:32 | VASCULAR ---
Date of service: 08/29/2018 PROCEDURE: 1. Arch arteriogram. 2. Bilateral selective common carotid arteriograms. 3. Bilateral selective vertebral arteriogram HISTORY: Multiple small posterior fossa infarcts. Left vertebral artery occlusion and possible right vertebral artery origin stenosis on noninvasive testing. COMPARISON: TECHNIQUE: The relative risks and indications of the procedure were explained the patient consent obtained. Patient placed supine on the arteriogram table and the right groin prepped and draped usual sterile fashion. Conscious sedation monitoring were provided throughout the procedure by a nurse. Via right common femoral artery approach, a 5 Maori sheath was placed. Through the sheath over guidewire a 5 Maori flush catheter was placed in the aortic arch and an [place] DSA arch arteriogram performed. The catheter was exchanged for a 5 Maori day this catheter which was placed in the left subclavian artery at the origin of the left vertebral artery. Selective imaging was performed. Next a catheter was placed in the left common carotid artery and a DSA left carotid arteriogram consisting of views of the bifurcation intracranial views performed. Next the catheter was placed in the right common carotid artery and a DSA right carotid arteriogram consisting of views of the bifurcation and intracranial views was performed. Finally the catheter was placed in the origin of the dominant right vertebral artery and multiple images of the cervical and intracranial segments obtained. The sheath was removed and hemostasis obtained. The patient tolerated the procedure well. FINDINGS: The arch arteriogram is somewhat degraded by motion. The 3 great vessels are widely patent. The right vertebral artery is dominant. The left vertebral artery is not well opacified. There is occlusion of the left vertebral origin. The left vertebral artery reconstitutes via collaterals at the level of C5. The left vertebral artery is small in caliber The right vertebral artery is dominant. The right vertebral artery is patent without significant stenotic disease. The basilar artery is normal in appearance. The posterior circulation unremarkable. There are large patent PCOM arteries bilaterally. Specifically the origin of the right vertebral artery was evaluated multiple views does not demonstrate a significant stenosis. There is mild disease of the proximal left internal carotid artery. The left external carotid artery is patent. The intracranial images are patent. There is a moderate to large left P com artery. The right carotid bifurcation is widely patent without significant occlusive disease. The right external carotid artery is widely patent. Intracranial images are unremarkable. There is a large right P com artery. IMPRESSION: 1. Short segment occlusion of the non dominant left vertebral artery origin. 2. Dominant widely patent right vertebral artery. Specifically the right vertebral artery origin is patent. 3. Widely patent carotid bifurcations. There are bilateral patent PCOM arteries.
--- NOTE | 2018-08-30 11:13 | PN ---
DATE: 08/30/2018 LOCATION: The patient is in [facility] in [place] room 368, bed 1. SUBJECTIVE: She is a 62-year-old female. She presented with tingling in the fingers on the left side and examined in the emergency room, she was admitted with diagnosis of cerebrovascular insufficiency and TIA. She has no significant past history excepting that she has history of osteoarthritis. She has had arthroscopic exam on the left knee in the past. PHYSICAL EXAMINATION VITAL SIGNS: This morning, pulse is 75, blood pressure 119/69, respirations are 20 and O2 saturation is 96% on room air. HEENT: The patient's head is normocephalic. NECK: JVP is flat. Carotid pulses are present. Thyroid is not enlarged. LUNGS: Trachea central. Breath sounds are vesicular. No adventitious sounds are heard. ABDOMEN: Soft. Liver and spleen not palpable. CENTRAL NERVOUS SYSTEM: The patient has no neurological deficits at this time. The patient's symptoms have abated. The patient has no weakness of the arms or legs. She is conscious, rational and oriented. Cranial nerves are intact. The patient's history of this admission, she presented with neurological symptoms. The patient had CAT scan of the head, MRI of the neck and head, cerebral angiograms, carotid angiograms. The patient had stenting of the carotid and the vertebral artery performed by Dr. Vinicio Licona. The patient is placed on Plavix 75 mg daily. The patient is on amlodipine 5 mg daily, Lipitor 20 mg daily and aspirin 81 mg daily. The patient is on a heart healthy diet. She will be discharged today and will be followed up in the office in 2 weeks. Her condition at the time of discharge is much improved. Law López MD
--- NOTE | 2018-08-30 13:38 | PN ---
DATE: 08/30/2018 REASON FOR CONSULTATION AND FOLLOWUP: Cardiac evaluation, possible CVA. The patient denies any chest pain, shortness of breath. Denies any palpitations. OBJECTIVE: GENERAL: Not in apparent distress. VITAL SIGNS: Temperature afebrile, heart 75, blood pressure _130 /69. HEENT: PERRLA. Extraocular muscles intact. NECK: Supple. No carotid bruit or thyromegaly. CHEST: Clear to auscultation. HEART: S1 and S2. Regular. ABDOMEN: Soft. EXTREMITIES: Clubbing and cyanosis, negative. LABORATORY DATA: Blood workup as follows: WBC 8.9, hemoglobin 11.9, hematocrit 37.2, platelet count 449. Chemistry showed sodium 130, potassium 4, chloride 107, carbon dioxide 27, anion gap 7, BUN 9, creatinine 0.7. IMPRESSION: A 62-year-old female admitted with numbness. MRI of the brain showed a small posterior foci infarct. The patient is on aspirin and Plavix. Echo shows left ventricular function preserved. Normal chamber ejection is 60 to 65%, trace mitral regurgitation, trace tricuspid regurgitation, right ventricular systolic pressure of 30, inferior vena cava normal size, interatrial septum is intact. No evidence of atrial septal defect by bubble study. RECOMMENDATION: Continue aspirin, Plavix 75 mg daily now, amlodipine 5 mg. The patient yesterday underwent intervention procedure, details pending, now aspirin and Plavix. Possible discharge home today, discussed with the patient. No evidence of PFO noted. Thank you, Dr. López, for providing us the opportunity in taking care of the patient, Kristine Hastings. Scar Castano MD [facility]
--- NOTE | 2018-08-31 10:04 | DS ---
BRIEF HISTORY: This is a 62-year-old female, with no significant medical history, who presented to the emergency room with tingling in the left hand. She also complained of dizziness and ataxia-like symptoms for two days duration. The patient has had treatment for osteoarthritis and left knee pain. She has had arthroscopic surgery by orthopedic surgeon. In the emergency room, the patient's blood work was within normal range. CAT scan of the head did not reveal any pathology. The patient was admitted to the general medical floor. HOSPITAL COURSE: The patient was started on aspirin 81 mg once a day. She underwent carotid Doppler and Neurologic evaluation by Dr. Feliz. Carotid Doppler showed occlusion of the left vertebral artery. MRI and MRA with and without contrast were ordered. Cervical spine x-ray was also done, which did not show any abnormalities. MRI of the brain showed scattered acute infarcts in the left posterior medulla, left inferior cerebellar hemisphere and right superior cerebellar hemisphere, which were in the distribution of the branches of the basilar and vertebral arteries. There were also some chronic microvascular changes seen in the white matter. MRI showed left vertebral artery diffusely narrowed compared to the right with the focal stenosis in the left vertebral 10 mm from the confluence with the basilar artery. The patient was seen by Dr. Vinicio Licona and taken for angiogram. The patient was also seen by Cardiology, Dr. Ortez and Dr. Castano. The angiogram showed short segment nondominant left vertebral artery, dominant patent right vertebral artery. The right vertebral artery origin was also patent; there was no need for stent to be placed. The patient; however, was started on Plavix. She was cleared for discharge the next day. On repeat chemistry, her renal functions were all within normal limits. The patient was discharged home in stable condition. DISCHARGE MEDICATIONS: Aspirin 81 mg once a day, Plavix 75 mg once a day, Norvasc 5 mg daily, and Lipitor 20 mg once a day. DISCHARGE DIAGNOSES: Acute infarcts in the left posterior medulla, left inferior cerebellar and right superior cerebellar hemispheres, left vertebral artery occlusion, and hypertension. FOLLOWUP: The patient will follow up in the office in two weeks. Renée López MD MTDD
== END 2018-08-30 11:15 | disposition home or self-care (01) | DRG 66 ==
LOC: ED 15:10 → ERH 17:49 → 3RNO 21:03 → OBSVTOIN 08-26 15:40 → 3RNO 08-27 15:25
PROVIDERS: ADMIT Internal Medicine; ATTEND Internal Medicine
PROC: B30 Imaging, Upper Arteries, Plain Radiography (ICD-10-PCS; principal; 2018-08-30)
PROC: B30 Imaging, Upper Arteries, Plain Radiography (ICD-10-PCS; 2018-08-30)
DX: I63.112 Cerebral infarction due to embolism of left vertebral artery (principal); I10 Essential (primary) hypertension; E78.00 Pure hypercholesterolemia, unspecified; M17.12 Unilateral primary osteoarthritis, left knee; I08.1 Rheumatic disorders of both mitral and tricuspid valves; R42 Dizziness and giddiness